=== PATIENT | male | born 1965 | race Two or more races ===

== ENCOUNTER 2025-06-25 16:52 | Emergency (ER) | payer MEDICAID, SELFPAY ==
[2025-06-25 16:54] VITALS: BMI 32.7
[2025-06-25 17:04] VITALS: BP 160/92; PULSE 99; RESP 18; TEMP 37.1; O2SAT 97
--- NOTE | 2025-06-25 17:05 | XR_ITS ---
Examination: Foot, left, 3 views Technique: AP, oblique, lateral views foot, 3 views Date and time of exam: June 25, 2025, 1726 hours INDICATIONS: Nonhealing ulcer on the heel this month FINDINGS: Large soft tissue defect involving the heel No cortical bone destruction involving the calcaneus Moderate narrowing first metatarsophalangeal joint No other areas of cortical bone destruction IMPRESSION: No cami cortical bone destruction
--- NOTE | 2025-06-25 17:05 | PD.EDRME ---
Rapid Medical Screening Exam RME Arrival date/time: 06/25/25 16:52 60-year-old male diabetic presents to the emergency department today for complaints of left foot infection Chief Complaint: Wound/Laceration Time Seen by Provider: 06/25/25 17:00 Vital signs: Vital Signs Temperature 98.7 F 06/25/25 17:04 Pulse Rate 99 06/25/25 17:04 Respiratory Rate 18 06/25/25 17:04 Blood Pressure 160/92 H 06/25/25 17:04 Pulse Oximetry (%) 97 06/25/25 17:04 Oxygen Delivery Method Room Air 06/25/25 17:04
[2025-06-25 17:57] LABS: Lactate (Lactic Acid) 2.0 mMol/L (0.4-2.0)
[2025-06-25 18:01] LABS: Basophils # (Auto) 0.1 Thou/mm3 (0.0-0.2); Basophils % (Auto) 1 % (0-2.5); Eosinophils # (Auto) 0.2 Thou/mm3 (0.0-0.5); Eosinophils % (Auto) 2 % (0-10); Hematocrit 45.1 % (41.0-53.0); Hemoglobin 15.0 g/dL (13.5-16.0); Immature Granulocytes Auto 0.02 Thou/mm3 (0.00-0.00); Lymphocytes # (Auto) 2.2 Thou/mm3 (1.0-4.8); Lymphocytes % (Auto) 24 % (10-50); Mean Corpuscular HGB Conc 33.3 g/dl (31.0-37.0); Mean Corpuscular Hemoglobin 27.3 pg (25.0-35.0); Mean Corpuscular Volume 82 fL (80-100); Monocytes # (Auto) 0.6 Thou/mm3 (0.0-0.8); Monocytes % (Auto) 6 % (0-12); Neutrophils # (Auto) 6.2 Thou/mm3 (1.8-7.7); Neutrophils % (Auto) 67 % (37-80); Nucleated Red Blood Cell # 0.00 Thou/mm3 (0.00-0.00); Nucleated Red Blood Cell % 0 /100 WBC (0); Platelet Count 242 Thou/mm3 (140-440); RDW Standard Deviation 37.5 fL (35.1-43.9); Red Blood Count 5.49 Miln/mm3 (4.50-5.90); White Blood Count 9.2 Thou/mm3 (3.8-10.6)
[2025-06-25 18:14] LABS: INR 1.0 (0.9-1.3); Prothrombin Time 10.7 Seconds (9.0-12.2)
[2025-06-25 18:18] LABS: Sed Rate (ESR) 90 mm/hr (0-20)
[2025-06-25 18:25] LABS: Alanine Aminotransferase 30 U/L (10-49); Albumin, Serum 4.2 gm/dL (3.4-4.8); Albumin/Globulin Ratio 1.1 (1.2-2.2); Alkaline Phosphatase 126 U/L (46-116); Anion Gap 11 (7-16); Aspartate Amino Transferase 23 U/L (0-34); BUN/Creatinine Ratio 11 Ratio (12-20); Bilirubin,Total 0.5 mg/dL (0.3-1.2); Blood Urea Nitrogen 16 mg/dL (9-23); C-Reactive Protein 1.1 mg/dL (0.0-0.9); Calcium 10.1 mg/dL (8.3-10.6); Calcium (Corrected) 10.1 mg/dL (8.5-10.1); Carbon Dioxide 26.1 mMol/L (20.0-31.0); Chloride 95 mMol/L (98-107); Creatinine (Component) 1.4 mg/dL (0.6-1.3); Estimated Creatinine Clearance 71.9 mL/min (>60); Globulin 3.8 gm/dL (2.3-3.5); Osmolality,Calculated 292 (275-295); Potassium 3.7 mMol/L (3.4-5.1); Procalcitonin 0.04 ng/ml (0.0-0.49); Sodium 132 mMol/L (136-145); Total Protein 8.0 gm/dL (5.7-8.2); eGFR 57 See Note
[2025-06-25 18:41] LABS: Glucose 584 mg/dL (74-106)
--- NOTE | 2025-06-25 20:37 | PD.EDWOUND ---
ED Wound/Laceration-RME/HPI General Chief Complaint: Wound/Laceration Stated Complaint: LEFT FOOT WOUND FOUL ODOR Time Seen by Provider: 06/25/25 17:00 Arrival date/time: 06/25/25 16:52 RME / HPI RME / HPI narrative: 06/25/25 16:52 60-year-old male diabetic presents to the emergency department today for complaints of left foot infection See [facility] for Dr. Parker's HPI Documentation. Related Data Home Medications ?Medication ?Instructions ?Recorded ?Confirmed lisinopril 30 mg tablet 30 mg PO QDAY #0 tabs 05/12/16 10/29/18 insulin NPH isoph U-100 human 100 40 unit subcut QAM 10/20/18 10/29/18 unit/mL subcutaneous suspension (Humulin N NPH U-100 Insulin (isophane susp)) gabapentin 600 mg tablet 600 mg PO QDAY 10/29/18 10/29/18 Previous Rx's ?Medication ?Instructions ?Recorded amoxicillin 875 mg-potassium 1 tab PO BID #20 tabs 06/26/25 clavulanate 125 mg tablet clindamycin HCl 300 mg capsule 300 mg PO QID 10 days #40 caps 06/26/25 Allergies Allergy/AdvReac Type Severity Reaction Status Date / Time No Known Allergies Allergy Verified 06/25/25 16:54 Review of Systems Review of Systems Systems Reviewed: All systems reviewed, normal except as documented Past Medical History Past Medical History CARDIAC: Positive Cardiac Disorders and Hypertension ENDOCRINE: Positive Endocrine Disorders and Diabetes Mellitus Type 2 ED Exam Narrative Physical exam: See [facility] for Dr. Parker's Physical Exam Documentation. Course Course Course Narrative: CXR was ordered for determining the etiology of shortness of breath. Quality Measures none Orders Category Date Time Status CT Screening NOW Care 06/25/25 20:44 Completed Saline [Insert IV] NOW Care 06/25/25 20:41 Completed Straight [In and Out Catheter] X1 Care 06/25/25 20:[address] foot LT w con Stat Exams 06/25/25 20:44 Completed XR chest 1V portable Stat Exams 06/25/25 20:44 Completed XR foot comp LT min 3V Stat Exams 06/25/25 17:05 Completed ABG [Arterial Blood Gas] Stat Lab 06/25/25 21:13 Completed BNP [B-Type Natriuretic Peptide] Stat Lab 06/25/25 23:01 Completed Beta Hydroxybutyrate Stat Lab 06/25/25 23:01 Completed Blood Culture (Lab) Stat Lab 06/25/25 17:24 Results CBC Stat Lab 06/25/25 17:24 Completed CMP [Comprehensive Metabolic Panel] Stat Lab 06/25/25 17:24 Completed CRP [C-Reactive Protein] Stat Lab 06/25/25 17:24 Completed ESR [Sed Rate (ESR)] Stat Lab 06/25/25 17:24 Completed Hemoglobin A1C [Glycohemoglobin w (eAG)] Stat Lab 06/25/25 23:01 Completed Lactic Acid [Lactate (Lactic Acid)] Stat Lab 06/25/25 17:24 Completed Magnesium Stat Lab 06/25/25 23:01 Completed PT [Prothrombin Time with INR] Stat Lab 06/25/25 17:24 Completed Procalcitonin Stat Lab 06/25/25 17:24 Completed Procalcitonin Stat Lab 06/25/25 23:01 Completed TSH [Thyroid Stimulating Hormone] Stat Lab 06/25/25 23:01 Completed Troponin I Stat Lab 06/25/25 23:01 Completed Cefepime Inj [Maxipime Inj] 2 gm Med 06/25/25 20:41 Discontinued SODIUM CHLORIDE 0.9% (Popper) [Ns 0.9% (P)] 50 ml IV X1 Insulin Regular Med 06/25/25 20:41 Discontinued 10 unit IV X1 ONE Sodium Chloride 0.9% 1000 ml [Ns] 1,000 ml Med 06/25/25 20:41 Discontinued IV 999 mls/hr Vancomycin Inj 2,000 mg Med 06/25/25 20:41 Discontinued Sodium Chloride 0.9% 500 ml [Ns] 500 ml IV X1 Vital Signs Vital signs: Vital Signs Temperature 98.7 F 06/25/25 17:04 Pulse Rate 99 06/25/25 17:04 Respiratory Rate 18 06/25/25 17:04 Blood Pressure 160/92 H 06/25/25 17:04 Pulse Oximetry (%) 97 06/25/25 17:04 Oxygen Delivery Method Room Air 06/25/25 17:04 Wound / Laceration MDM Narrative MDM Narrative:: Scribe Attestation: I, Elizabeth Rodriguez am scribing for and in the presence of Dr. Parker. This section includes all my notes and documentations, including HPI, PE, and ED course. Malcolm Parker MD HPI: 60 y/o male with Hx of DM and HTN presents with left foot open for a few weeks. Has been taking Bactrim with no improvement. No fever or chills or aches or malaise. No other complaints. ROS: All negative except as documented in HPI. Physical Exam: General: Alert and oriented. No acute distress. Eyes: Conjunctivae and lids clear. ENT: No nasal congestion. Neck: Supple. Lungs: No respiratory distress. Skin: Warm and dry. Neuro: Alert and oriented X 3. Left Foot: Over Achilles tendon, there is a quarter sized ulcer. No surrounding erythema/kaushik/edema/tenderness. I reviewed all diagnostic test results: My interpretation of the Chest x-ray is: NAD. My interpretation of the Left Foot x-ray is: NAD. My review of the Foot CT report is no osteomyelitis. Blood tests unremarkable. At this point, diagnoses include: Cellulitis of left foot, Ulcer of left foot. Treatment here included: IVF, Insulin 10 units, Vancomycin 2 G, Maxipime 2 G Recommended outpatient care. Based on my best medical judgment, made decision no further evaluation or treatment indicated at this time. Patient understands and agrees to the discharge instructions customized and printed, see below. Discharge Instructions from Dr. Parker printed for you: 1. After extensive evaluation, you have right foot open wound with cellulitis (soft tissue infection). There is no very serious infection such as blood poisoning or bone infection. 2. Take Augmentin and clindamycin as prescribed. You can discontinue Bactrim. 3. See a private doctor later today on 06/26/2025 for recheck. Ask to review all test results and official radiology reports, to make sure you receive all necessary follow-ups and monitoring. Ask for help until you are completely better. Ask for referral to get into wound care clinic. 4. Seek immediate medical care with fever, spreading redness, or with any concerns. Malcolm Parker MD Patient data External records reviewed:: [facility] previous records (No recent ED records available for review.) Clinical information provided by:: patient Social determinants that could affect healthcare access:: none Patient has the following chronic illnesses:: HTN, Type II DM How is presenting disease/condition affected by chronic disease/condition?: exacerbated by Evaluation data The following diagnostics were reviewed and interpreted by me:: lab results and radiology exam(s) Lab and/or radiology exams considered but not ordered:: None Interpretation Summary: I reviewed all diagnostic test results: My interpretation of the Chest x-ray is: NAD. My interpretation of the Left Foot x-ray is: NAD. My review of the Foot CT report is no osteomyelitis. Blood tests unremarkable. Medications / Prescriptions Medications or Prescriptions considered but not ordered:: None Medication administrations:: Medication Administration History Discontinued Medications Cefepime HCl 2 gm/ Sodium (Chloride) 50 mls @ 100 mls/hr IV X1 ONE Stop: 06/25/25 21:10 Last Infusion: 06/25/25 21:34 Dose: Infused Documented By: Admin: 06/25/25 21:04 Dose: 100 mls/hr Documented By: YOLIE Sodium Chloride (Ns) 1,000 mls @ 999 mls/hr IV .Q1H1M ONE Stop: 06/25/25 21:41 Last Infusion: 06/25/25 22:25 Dose: Infused Documented By: Admin: 06/25/25 21:06 Dose: 999 mls/hr Documented By: YOLIE Vancomycin HCl 2,000 mg/ (Sodium Chloride) 500 mls @ 150 mls/hr IV X1 ONE Stop: 06/26/25 00:00 Last Infusion: 06/26/25 01:14 Dose: Infused Documented By: Admin: 06/25/25 21:47 Dose: 150 mls/hr Documented By: YOLIE Insulin Human Regular (Insulin Hum Regular 1 Unit/0.01 Ml (Per Unit)) 10 unit IV X1 ONE Stop: 06/25/25 20:42 Last Admin: 06/25/25 21:13 Dose: 10 unit Documented By: YOLIE Co-signed By: DAWOOD IVF, Insulin 10 units, Vancomycin 2 G, Maxipime 2 G Consultations Consultation(s) initiated? (list below): No Diagnosis Wound Differential Diagnosis: laceration, abscess, abrasion and avulsion of skin Most likely diagnosis given after review of the tests above:: Cellulitis of left foot, Ulcer of left foot Admission Indicated Admission indicated?: not indicated Explain why admission is indicated or not indicated:: With no condition needing emergent intervention, there was no indication for admission. Admission Request Was there a request for admission?: No Disposition Plan Disposition Plan: Discharge Discharge Attestation Discharge Attestation: The patient and all family members were given an opportunity to ask questions and understood the discharge instructions. Discharge instructions specifically effects, indications for sooner follow up or return to the emergency department, and the expected course of current diagnosis. Patient condition: Stable Discharge Plan Plan Patient Disposition: HOME (Self Care) Prescriptions/Referrals Prescriptions/Med Rec: New clindamycin HCl 300 mg capsule 300 mg PO QID 10 Days Qty: 40 0RF amoxicillin-pot clavulanate 875-125 mg tablet 1 tab PO BID Qty: 20 0RF No Action lisinopril 30 MG tablet 30 mg PO QDAY Qty: 0 insulin NPH isoph U-100 human [Humulin N NPH U-100 Insulin] 100 unit/mL Suspension 40 unit SUBCUT QAM gabapentin 600 mg Tablet 600 mg PO QDAY Referrals: Charu Pizarro MD [Primary Care Provider] - In 1 week Problem List Clinical Impression: Cellulitis of left foot, Ulcer of left foot Patient/Caregiver Discharge Instructions Discharge Activity: activity as tolerated Education Materials: ED Cellulitis, ED Wound Care Additional Instructions: Discharge Instructions from Dr. Parker printed for you: 1. After extensive evaluation, you have right foot open wound with cellulitis (soft tissue infection). There is no very serious infection such as blood poisoning or bone infection. 2. Take Augmentin and clindamycin as prescribed. You can discontinue Bactrim. 3. See a private doctor later today on 06/26/2025 for recheck. Ask to review all test results and official radiology reports, to make sure you receive all necessary follow-ups and monitoring. Ask for help until you are completely better. Ask for referral to get into wound care clinic. 4. Seek immediate medical care with fever, spreading redness, or with any concerns. Print Language: Niuean Stand Alone Forms: Jessy Award Info., Patient Portal Info Letter
--- NOTE | 2025-06-25 20:44 | XR_ITS ---
Examination: CT left foot, without contrast. 2-D sagittal reconstructions. 2-D coronal reconstructions. 3-D reconstructions. Date and time of exam:June 25, 2025 at 2125 hours INDICATIONS: Nonhealing heel ulcer with redness swelling and pain beginning 5 days ago CTDI: vol (mGy):3.52 DLP: (mGycm):128. Technique: Multiple 1.25 mm axial sections of the . have been obtained. 2-D sagittal and coronal reconstructions have been obtained. 3-D reconstructions have been obtained. Low dose protocols were performed. One or more of the following dose reduction techniques were used; automated exposure control, adjustment of the mA and/or KV according to patient size, use of iterative reconstruction technique. Findings: Soft tissue infection with air densities plantar and posterior to the medial with skin thickening No fluid-filled drainable abscess No calcaneal cortical bone destruction 5 mm plantar bony calcaneal spur Tarsal bones metatarsals and digits intact IMPRESSION: Soft tissue infection plantar posterior aspect of the heel No fluid-filled soft tissue abscess Negative for osteomyelitis Consider MRI foot without contrast follow-up
--- NOTE | 2025-06-25 20:44 | XR_ITS ---
Examination: AP chest single view TECHNIQUE: AP portable upright chest single view Date and time: April 25, 2025, 2049 hours Comparison 07/10/2013 INDICATIONS: Shortness of breath chest pain beginning today. FINDINGS: Mild prominence left ventricle Reduced inspiratory effort. Moderate vascular congestion. No lobar pneumonia or pulmonary edema IMPRESSION: Moderate vascular congestion No lobar pneumonia or pulmonary edema
[2025-06-25 21:04] VITALS: BP 132/85; PULSE 83; RESP 18; TEMP 36.8; O2SAT 96
[2025-06-25] MEDS: CEFEPIME INJ 2 GM in SODIUM CHLORIDE 0.9% (Popper) 50 ML IV (21:04)
[2025-06-25] MEDS: SODIUM CHLORIDE 0.9% 1000 ML 1,000 ML 999 ML IV (21:06)
[2025-06-25] MEDS: INSULIN HUM REGULAR 1 UNIT/0.01 ML (PER UNIT) 10 UNIT IV (21:13)
[2025-06-25 21:23] LABS: Base Excess 2 (-3-3); HCO3 27 mEq/L (20-26); Inspired Oxygen, FIO2 21 %; O2 Saturation 96 % (91-98); PCO2 42 mmHg (32.0-48.0); PO2 72 mmHg (83-108); pH, Arterial 7.42 (7.35-7.45)
[2025-06-25 21:25] LABS: Allen Test Performed/OK; Puncture Site Right Radial
[2025-06-25] MEDS: Vancomycin Inj 2,000 MG in SODIUM CHLORIDE 0.9% 500 ML 500 ML 150 MG IV (21:47)
[2025-06-25 22:59] VITALS: BP 159/100; PULSE 71; RESP 18; TEMP 36.7; O2SAT 97
[2025-06-25 23:18] LABS: Beta Hydroxybutyrate 0.1 mmol/L (<0.6)
[2025-06-25 23:24] LABS: Glucose Estimated Average 338 mg/dL (80-131); Hemoglobin A1C 13.4 % Hgb (4.8-6.0)
[2025-06-25 23:29] LABS: B-Type Natriuretic Peptide 92 pg/mL (0-100)
[2025-06-25 23:52] LABS: Magnesium 2.0 mg/dL (1.6-2.6); Procalcitonin 0.06 ng/ml (0.0-0.49); Thyroid Stimulating Hormone 2.21 uIU/mL (0.55-4.78); Troponin I < 0.020 ng/mL (0.0-0.045)
[2025-06-26 00:22] VITALS: BP 146/88; PULSE 66; RESP 17
[2025-06-26 00:31] VITALS: PULSE 69; RESP 19; TEMP 37; O2SAT 97
--- NOTE | 2025-06-26 00:36 | PC.NURSE ---
clarified with Dr. Parker regarding completing vancomycin, per provider complete medication prior to discharge
== END 2025-06-26 01:15 | disposition home or self-care (01) ==
PROVIDERS: Nurse Practitioner Primary Care; Emergency Provider Emergency Medicine; PCP Family Medicine
DX: L03.116 Cellulitis of left lower limb (principal); E11.621 Type 2 diabetes mellitus with foot ulcer; L97.529 Non-pressure chronic ulcer of other part of left foot with unspecified severity; R06.02 Shortness of breath; I10 Essential (primary) hypertension; Z79.4 Long term (current) use of insulin; Z79.899 Other long term (current) drug therapy
CPT/HCPCS: 36415; 36600; 71045; 73630; 73701; 80053; 81001; 82010; 82803; 83036; 83605; 83735; 83880; 84145; 84443; 84484; 85025; 85610; 85652; 86140; 87040; 99284; A4649; J0692; J1815; J3373; J7030; J7050; J7999; Q9967

== ENCOUNTER → 2025-06-26 | Outpatient (CLI) | payer MEDICAID, SELFPAY | END | disposition home or self-care (01) | PROVIDERS: PCP Registered Nurse; Referring Provider Registered Nurse; Visit Provider Surgery | DX: I96 Gangrene, not elsewhere classified (principal); E11.621 Type 2 diabetes mellitus with foot ulcer; L97.423 Non-pressure chronic ulcer of left heel and midfoot with necrosis of muscle; I10 Essential (primary) hypertension; Z79.4 Long term (current) use of insulin | CPT/HCPCS: 11043; 99213; A9270; G0463 ==

== ENCOUNTER → 2025-06-29 | Outpatient (CLI) | payer MEDICAID, SELFPAY | END | disposition home or self-care (01) | LOC: SWHD 08:41 | PROVIDERS: PCP Registered Nurse; Referring Provider Registered Nurse; Visit Provider Student in an Organized Health Care Education/Training Program | DX: I96 Gangrene, not elsewhere classified (principal); E11.621 Type 2 diabetes mellitus with foot ulcer; L97.423 Non-pressure chronic ulcer of left heel and midfoot with necrosis of muscle; I10 Essential (primary) hypertension; Z79.4 Long term (current) use of insulin | CPT/HCPCS: 11042; A9270 ==

== ENCOUNTER → 2025-07-10 | Outpatient (CLI) | payer MEDICAID, SELFPAY | END | disposition home or self-care (01) | LOC: SWHD 08:18 | PROVIDERS: PCP Family Medicine; Referring Provider Family Medicine; Visit Provider Surgery | DX: I96 Gangrene, not elsewhere classified (principal); E11.621 Type 2 diabetes mellitus with foot ulcer; L97.425 Non-pressure chronic ulcer of left heel and midfoot with muscle involvement without evidence of necrosis; Z79.4 Long term (current) use of insulin | CPT/HCPCS: 11042; A9270 ==

== ENCOUNTER → 2025-07-17 | Outpatient (CLI) | payer MEDICAID, SELFPAY | END | disposition home or self-care (01) | LOC: SWHD 08:44 | PROVIDERS: PCP Family Medicine; Referring Provider Family Medicine; Visit Provider Surgery | DX: I96 Gangrene, not elsewhere classified (principal); E11.621 Type 2 diabetes mellitus with foot ulcer; L97.422 Non-pressure chronic ulcer of left heel and midfoot with fat layer exposed; Z79.4 Long term (current) use of insulin | CPT/HCPCS: 11042; A9270 ==

== ENCOUNTER → 2025-07-23 | Outpatient (CLI) | payer MEDICAID, SELFPAY | END | disposition home or self-care (01) | LOC: SWHD 11:05 | PROVIDERS: PCP Family Medicine; Referring Provider Family Medicine; Visit Provider Student in an Organized Health Care Education/Training Program | DX: I96 Gangrene, not elsewhere classified (principal); E11.621 Type 2 diabetes mellitus with foot ulcer; L97.422 Non-pressure chronic ulcer of left heel and midfoot with fat layer exposed; Z79.4 Long term (current) use of insulin | CPT/HCPCS: 11042; A9270 ==

== ENCOUNTER → 2025-08-07 | Outpatient (CLI) | payer MEDICAID, SELFPAY | END | disposition home or self-care (01) | LOC: SWHD 08:25 | PROVIDERS: PCP Family Medicine; Referring Provider Family Medicine; Visit Provider Student in an Organized Health Care Education/Training Program | DX: I96 Gangrene, not elsewhere classified (principal); E11.621 Type 2 diabetes mellitus with foot ulcer; L97.422 Non-pressure chronic ulcer of left heel and midfoot with fat layer exposed; Z79.4 Long term (current) use of insulin | CPT/HCPCS: 11042; A9270 ==

== ENCOUNTER → 2025-08-14 | Outpatient (CLI) | payer MEDICAID, SELFPAY | END | disposition home or self-care (01) | LOC: SWHD 08:27 | PROVIDERS: PCP Family Medicine; Referring Provider Family Medicine; Visit Provider Student in an Organized Health Care Education/Training Program | DX: I96 Gangrene, not elsewhere classified (principal); E11.621 Type 2 diabetes mellitus with foot ulcer; L97.422 Non-pressure chronic ulcer of left heel and midfoot with fat layer exposed; Z79.4 Long term (current) use of insulin | CPT/HCPCS: 11042; A9270 ==

== ENCOUNTER → 2025-08-21 | Outpatient (CLI) | payer MEDICAID, SELFPAY | END | disposition home or self-care (01) | LOC: SWHD 08:28 | PROVIDERS: PCP Family Medicine; Referring Provider Family Medicine; Visit Provider Physician Assistant | DX: I96 Gangrene, not elsewhere classified (principal); E11.621 Type 2 diabetes mellitus with foot ulcer; L97.422 Non-pressure chronic ulcer of left heel and midfoot with fat layer exposed; Z79.4 Long term (current) use of insulin | CPT/HCPCS: 97597; A9270 ==

== ENCOUNTER → 2025-08-28 | Outpatient (CLI) | payer MEDICAID, SELFPAY | END | disposition home or self-care (01) | LOC: SWHD 07:57 | PROVIDERS: PCP Family Medicine; Referring Provider Family Medicine; Visit Provider Surgery | DX: I96 Gangrene, not elsewhere classified (principal); E11.621 Type 2 diabetes mellitus with foot ulcer; L97.422 Non-pressure chronic ulcer of left heel and midfoot with fat layer exposed; Z79.4 Long term (current) use of insulin | CPT/HCPCS: 11042; A9270 ==

== ENCOUNTER → 2025-09-04 | Outpatient (CLI) | payer MEDICAID, SELFPAY | END | disposition home or self-care (01) | LOC: SWHD 08:16 | PROVIDERS: PCP Family Medicine; Referring Provider Family Medicine; Visit Provider Surgery | DX: I96 Gangrene, not elsewhere classified (principal); E11.621 Type 2 diabetes mellitus with foot ulcer; L97.422 Non-pressure chronic ulcer of left heel and midfoot with fat layer exposed; Z79.4 Long term (current) use of insulin | CPT/HCPCS: 97597; A9270 ==

== ENCOUNTER → 2025-09-10 | Outpatient (CLI) | payer MEDICAID, SELFPAY ==
--- NOTE | 2025-09-10 16:08 | XR_ITS ---
Examination: MRI left ankle without contrast Date and time of exam: September 10, 2025, 1724 hours INDICATIONS: Left ankle and heel pain beginning May 09, 2025 Technique: Multiple MRI axial and sagittal sections left ankle. Sagittal T2-weighted images, TR 3500, TE 118 T1 weighted transverse sections, TR 688 T8.5, T2-weighted sagittal sections T1 weighted sagittal sections TR 621, TE 30 T2 axial sections, TR 4, 190, TE 84. Findings: Significant biconvex thickening of the Achilles tendon Moderate plantar fasciitis No bone contusion marrow edema occult fracture or avascular necrosis Dome of the talus is intact Diffuse edema involving the subcutaneous fatty tissue and the extensor and flexor muscles Anterior posterior inferior tibiofibular ligaments intact Moderate strain posterior talofibular ligament Moderate strain anterior talofibular ligament Tendinitis peroneus longus and brevis Extensor tendons intact IMPRESSION: Significant Achilles tendinosis Moderate plantar fasciitis No occult fracture Moderate strain anterior posterior talofibular ligaments Tendinitis peroneus longus and brevis
== END | disposition home or self-care (01) ==
LOC: SMRI 15:11
PROVIDERS: PCP Family Medicine; Referring Provider Otolaryngology; Visit Provider Otolaryngology
DX: M72.2 Plantar fascial fibromatosis (principal); M76.72 Peroneal tendinitis, left leg
CPT/HCPCS: 73721

== ENCOUNTER → 2025-09-11 | Outpatient (CLI) | payer MEDICAID, SELFPAY | END | disposition home or self-care (01) | LOC: SWHD 08:25 | PROVIDERS: PCP Family Medicine; Referring Provider Family Medicine; Visit Provider Physician Assistant | DX: I96 Gangrene, not elsewhere classified (principal); E11.621 Type 2 diabetes mellitus with foot ulcer; L97.422 Non-pressure chronic ulcer of left heel and midfoot with fat layer exposed; Z79.4 Long term (current) use of insulin | CPT/HCPCS: 97597; A9270 ==

== ENCOUNTER → 2025-09-28 | Outpatient (CLI) | payer MEDICAID, SELFPAY | END | disposition home or self-care (01) | LOC: SWHD 08:05 | PROVIDERS: PCP Family Medicine; Referring Provider Family Medicine; Visit Provider Student in an Organized Health Care Education/Training Program | DX: I96 Gangrene, not elsewhere classified (principal); E11.621 Type 2 diabetes mellitus with foot ulcer; L97.422 Non-pressure chronic ulcer of left heel and midfoot with fat layer exposed; Z79.4 Long term (current) use of insulin | CPT/HCPCS: 97597; A9270 ==

== ENCOUNTER → 2025-10-09 | Outpatient (CLI) | payer MEDICAID, SELFPAY | END | disposition home or self-care (01) | PROVIDERS: PCP Family Medicine; Referring Provider Family Medicine; Visit Provider Surgery | DX: I96 Gangrene, not elsewhere classified (principal); E11.621 Type 2 diabetes mellitus with foot ulcer; L97.421 Non-pressure chronic ulcer of left heel and midfoot limited to breakdown of skin; Z79.4 Long term (current) use of insulin | CPT/HCPCS: 97597 ==

== ENCOUNTER → 2025-10-23 | Outpatient (CLI) | payer MEDICAID, SELFPAY | END | disposition home or self-care (01) | LOC: SWHD 08:07 | PROVIDERS: PCP Family Medicine; Referring Provider Family Medicine; Visit Provider Surgery | DX: I96 Gangrene, not elsewhere classified (principal); E11.621 Type 2 diabetes mellitus with foot ulcer; L97.421 Non-pressure chronic ulcer of left heel and midfoot limited to breakdown of skin; Z79.4 Long term (current) use of insulin | CPT/HCPCS: 99212; G0463 ==